=== PATIENT | female | born 1935 | race Caucasian/White ===

== ENCOUNTER → 2018-11-29 | Outpatient (CLI) | payer MEDICARE ==
[~2018-11-29] MED LIST: ALPR0.5T72 PO; ASP81TEC PO; AUGMENTIN 500 MG PO; CATHETER FLUSH 10 ML SYR IV PRN; CITA-105 PO; DIATRIZOATE MEGLUM/SODIUM 37% 120 ML (GASTROGRAFIN) PO ONE; GLYB5TAB6 PO; HOLD METFORMIN - RECEIVED CONTRAST 20 ML VIAL IV SCH; HYDR1TAB PO; IOHEXOL 350 MG/ML 100 ML (OMNIPAQUE 350) VIAL IV ONE; MTF500T PO; NS 100 ML (IVPB) BAG IV ONE; PGLT30T PO; SIMV40TA4 PO; SITA50TA PO
--- NOTE | 2018-11-29 12:53 | Diagnostic Imaging Report ---
PROCEDURE: CT abdomen and pelvis without contrast. TECHNIQUE: Multiple contiguous axial images were obtained through the abdomen and pelvis without the use of intravenous contrast. Auto Exposure Controls were utilized during the CT exam to meet ALARA standards for radiation dose reduction. INDICATION: Generalized abdominal pain and bloating. COMPARISON: No prior studies are available for comparison. FINDINGS: The lung bases are clear. No discrete liver mass is identified. The gallbladder is unremarkable. No biliary ductal dilatation is seen. The pancreas and spleen are unremarkable. Right adrenal gland is unremarkable. There is a low density mass involving the left adrenal gland measuring 2.5 cm. This most likely represents an adenoma. Right kidney contains an exophytic mass arising laterally measuring 2.7 cm. This likely represents a cyst. Larger low density mass lower pole left kidney is seen measuring 5.3 cm. This likely represents a cyst. Aorta is calcified but nonaneurysmal. The small and large bowel loops are normal caliber. No obstruction is seen. There is no ascites. The bladder and uterus are unremarkable. Postsurgical changes in the lower lumbar spine are noted. IMPRESSION: 1. Low-density left adrenal mass suggestive of an adenoma. 2. Bilateral renal low densities suggestive of cysts. 3. No acute feature in the abdomen or pelvis is identified. Dictated by: Dictated on workstation # [id number]
== END ==
LOC: RAD FS 10:55
PROVIDERS: ATTEND Nurse Practitioner
DX: E27.8 Other specified disorders of adrenal gland (principal); N28.89 Other specified disorders of kidney and ureter; I10 Essential (primary) hypertension; R15.9 Full incontinence of feces; R14.0 Abdominal distension (gaseous); Z98.890 Other specified postprocedural states
CPT/HCPCS: 74176

== ENCOUNTER → 2020-05-03 | Outpatient (CLI) | payer MEDICARE ==
[~2020-05-03] MED LIST changes: -CATHETER FLUSH 10 ML SYR IV PRN; -DIATRIZOATE MEGLUM/SODIUM 37% 120 ML (GASTROGRAFIN) PO ONE; -HOLD METFORMIN - RECEIVED CONTRAST 20 ML VIAL IV SCH; -IOHEXOL 350 MG/ML 100 ML (OMNIPAQUE 350) VIAL IV ONE; -NS 100 ML (IVPB) BAG IV ONE
[2020-05-03 22:10] LABS: ALBUMIN 3.8 GM/DL (3.2-4.5); BILIRUBIN,TOTAL 0.2 MG/DL (0.1-1.0); CREATININE SERUM 1.36 MG/DL (0.60-1.30); POTASSIUM 5.2 MMOL/L (3.6-5.0); TOTAL PROTEIN 5.7 GM/DL (6.4-8.2)
== END ==
LOC: LAB FS 15:18
PROVIDERS: ATTEND Pediatrics
DX: E11.21 Type 2 diabetes mellitus with diabetic nephropathy (principal); E78.49 Other hyperlipidemia
CPT/HCPCS: 36415; 80053; 80061; 83036

== ENCOUNTER → 2021-08-20 | Outpatient (CLI) | payer MEDICARE, MEDICAID ==
[2021-08-20 09:39] LABS: BASOPHILS % (AUTO) 0 % (0-10); EOSINOPHILS # (AUTO) 0.1 10^3/uL (0.0-0.3); EOSINOPHILS % (AUTO) 1 % (0-10); HEMATOCRIT 34 % (35-52); HEMOGLOBIN 10.4 g/dL (11.5-16.0); LYMPHOCYTES # (AUTO) 1.5 X 10^3 (1.0-4.0); LYMPHOCYTES % (AUTO) 20 % (12-44); MEAN CORPUSCULAR HEMOGLOBIN 25 pg (25-34); MEAN CORPUSCULAR HGB CONC 30 g/dL (32-36); MEAN CORPUSCULAR VOLUME 82 fL (80-99); MEAN PLATELET VOLUME 10.4 fL (9.0-12.2); MONOCYTES # (AUTO) 0.8 X 10^3 (0.0-1.0); MONOCYTES % (AUTO) 11 % (0-12); NEUTROPHILS % (AUTO) 67 % (42-75); PLATELET COUNT 260 10^3/uL (130-400); WHITE BLOOD COUNT 7.4 10^3/uL (4.3-11.0)
== END ==
PROVIDERS: ATTEND Pediatrics
DX: R06.02 Shortness of breath (principal); R05.9 Cough, unspecified; R09.81 Nasal congestion
CPT/HCPCS: 36415; 85025